=== PATIENT | male | born 1980 | race Two or more races ===

== ENCOUNTER 2024-10-14 15:03 | Emergency (ER) | payer BC, OTHER ==
[~2024-10-14] VITALS: Ht 172.7 cm; Wt 102.7 kg
[2024-10-14] MEDS: TETANUS-DIPTH-ACEL PERTUSSIS 0.5ML SYR Tdap IM ONE (15:29)
[2024-10-14] MEDS: LIDOCAINE 1% HCL (LOCAL ANESTH.) INJ 20ML MDV ID ONE (15:32)
[2024-10-14] MEDS ORDERED: CEPH250C PO (15:45)
[2024-10-14] MEDS ORDERED: ACET500T58 PO (15:45)
[2024-10-14] MEDS ORDERED: IBUP-1455 PO (15:45)
--- NOTE | 2024-10-14 15:46 | ED.PDOC ---
HPI Comments This patient is a otherwise healthy 44-year-old male who arrives the ED today for evaluation of a laceration sustained in the left palm or proximally 1/2 hour prior to arrival. Patient was preparing food at home when he jammed a serrated knife into the palm of his left hand. Bleeding with a was controlled at time of evaluation. Patient's tetanus is not up-to-date. Vital signs were stable. Chief Complaint: Laceration Time Seen by MD: 15:11 Reviewed Notes: Nurses Notes Allergies: Coded Allergies: NO KNOWN ALLERGIES (Unverified , 10/14/24) Information Source: Patient Mode of Arrival: Ambulatory Severity: Moderate Severity of Laceration: Controlled Bleeding Complexity: Simple Timing: Minutes Prehospital treatment: None Laceration Location: Hand Mechanism: Knife Last Tetanus: > 5 Years Laceration Length (cm): 2 Skin Type: Linear Depth of Injury: Skin, Mucosa, SQ Tendon Injury: 0% Tender: Moderate Discharge: Bloody Past Medical History PAST MEDICAL HISTORY: Denies Surgical History: Denies all surgeries Family History Family History: Reviewed,noncontributory to illness, No family hx of Cancer, No family hx of DM, No family hx of Heart karin, No family hx of HTN, No family hx ofKidney karin, No family hx of Liver karin, No family hx of Lung karin, No family hx of Stroke Social History Smoker: Non-Smoker Alcohol: Denies ETOH Use Drugs: Denies Drug Use Lives In: Home Constitutional: denies: chills, diaphoresis, fatigue, fever, malaise, sweats, weakness, others EENTM: denies: blurred vision, double vision, ear bleeding, ear discharge, ear drainage, ear pain, ear ringing, eye pain, eye redness, hearing loss, mouth pain, mouth swelling, nasal discharge, nose bleeding, nose congestion, nose pain, photophobia, tearing, throat pain, throat swelling, voice changes, others Respiratory: denies: cough, hemoptysis, orthopnea, SOB at rest, shortness of breath, SOB with excertion, stridor, wheezing, others Cardiovascular: denies: chest pain, dizzy spells, diaphoresis, Dyspnea on exertion, edema, irregular heart beat, left arm pain, lightheadedness, palpitations, PND, syncope, others Gastrointestinal: denies: abdomen distended, abdominal pain, blood streaked bowels, constipated, diarrhea, dysphagia, difficulty swallowing, hematemesis, melena, nausea, poor appetite, poor fluid intake, rectal bleeding, rectal pain, vomiting, others Genitourinary: denies: burning, dysuria, flank pain, frequency, hematuria, incontinence, penile discharge, penile sore, pain, testicle pain, testicle swelling, urgency, others Neurological: denies: dizziness, fainting, headache, left sided numbness, left sided weakness, numbness, paresthesia, pre-existing deficit, right sided numbness, right sided weakness, seizure, speech problems, tingling, tremors, weakness, others Musculoskeletal: denies: back pain, gout, joint pain, joint swelling, muscle pain, muscle stiffness, neck pain, others Integumetry: reports: laceration (2 cm laceration sustained to the left palm); denies: bruises, change in color, change in hair/nails, dryness, lesions, lumps, rash, wounds, others Allergic/Immunocompromised: denies: Difficulty Healing, Frequent Infections, Hives, Itching, others Hematologic/Lymphatic: denies: anemia, blood clots, easy bleeding, easy bruising, swollen glands, others Endocrine: denies: excessive hunger, excessive sweating, excessive thirst, excessive urination, flushing, intolerance to cold, intolerance to heat, unexplained weight gain, unexplained weight loss, others Psychiatric: denies: anxiety, bipolar disorder, depression, hopeless, panic disorder, schizophrenia, sleepless, suicidal, others Physical Exam General Appearance: Moderate Distress ([id number] distress due to pain related to his palm laceration), Normal HEENT: Normal ENT Inspection, Pharynx Normal, TMs Normal Neck: Full Range of Motion, Non-Tender, Normal, Normal Inspection Respiratory: Chest Non-Tender, Lungs Clear, No Accessory Muscle Use, No Respiratory Distress, Normal Breath Sounds Cardiovascular: No Edema, No JVD, No Murmur, No Gallop, Normal Peripheral Pulses, Regular Rate/Rhythm Breast Exam: Deferred Gastrointestinal: No Organomegaly, Non Tender, No Pulsatile Mass, Normal Bowel Sounds, Soft Genitalia: Deferred Pelvic: Deferred Rectal: Deferred Extremities: No calf tenderness, Normal capillary refill, Normal inspection, Normal range of motion, Non-tender, No pedal edema Neurologic: Alert, No Motor Deficits, Normal Affect, Normal Mood, No Sensory Deficits Cerebellar Function: Normal Reflexes: Normal Skin: Other (2 cm diagonal laceration noted to the central palm of the left hand. Bleeding is controlled. All flexor activity is uncompromised.) Lymphatic: No Adenopathy Was a procedure done? Was a procedure done?: Yes Sedation Sedation?: No Other Procedure Notes 4 cc of 1% lidocaine was utilized for local anesthesia in the left palm. Sterile field was placed. Copious irrigation performed. Four 4-0 Ethilon sutures were utilized in a simple interrupted fashion to close the 2 cm horizontal wound to the palm of the left hand. Minimal blood loss. Patient tolerated procedure well. Clean dressing applied. Differential diagnosis Generic Laceration: Laceration X-Ray, Labs, Meds, VS Vital Signs Date Time Temp Pulse Resp B/P (MAP) Pulse Ox O2 Delivery O2 Flow Rate FiO2 10/14/24 15:10 98.2 64 18 135/86 (102) 97 98.2 Current Medications Medications (Trade) Dose Ordered Sig/Mikel Route Start Time Stop Time Status Last Admin Diphtheria/ Tetanus/Acell Pertussis (Boostrix T-Dap) 0.5 ml ONCE ONCE IM 10/14/24 15:30 10/14/24 15:31 DC 10/14/24 15:29 Lidocaine HCl (Xylocaine 1%) 10 ml ONCE ONCE ID 10/14/24 15:30 10/14/24 15:31 DC 10/14/24 15:32 X-Ray, Labs, Meds, VS Comment Patient tolerated procedure well. Advised patient utilize antibiotics as directed until completion as well as pain medication as needed. Patient should return to ED or primary care provider in 10 days for re-evaluation and probable suture removal. Time of 1ST Reevaluation: 15:44 Reevaluation 1ST: Improved Consultation: PCP Patient Education/Counseling: Diagnosis, Treatment Family Education/Counseling: Diagnosis, Treatment Departure 1 Departure Time of Disposition: 15:44 Impression: Primary Impression: Hand laceration Disposition: 01 HOME / SELF CARE / HOMELESS Condition: Stable Additional Instructions: Advised patient utilize antibiotics as directed until completion as well as pain medication as needed. Patient should keep the wound clean and dressed daily. Patient should return to ED or primary care provider in 10 days for re- evaluation and probable suture removal. e-Prescriptions Ibuprofen Micronized (Ibuprofen) 800 Mg Tab 800 MG PO Q8HP PRN, #20 TAB Prov: JORGE TABARES PAC 10/14/24 Acetaminophen (Acetaminophen) 500 Mg Tab 500 MG PO Q4HP PRN, #30 TAB Prov: JORGE TABARES PAC 10/14/24 Cephalexin (KEFLEX CAPSULE) 250 Mg Cp 1 CAP PO QID for 7 Days, #28 CAP Prov: JORGE TABARES PAC 10/14/24 Discharged With: Self, Friend Critical Care Note Critical Care Time?: No Stability Stability form required: No Heart Score Heart Score: Heart Score Response (Comments) Value History N/A 0 EKG N/A 0 Age N/A 0 Risk Factors N/A 0 Troponin N/A 0 Total 0 JORGE TABARES PAC Oct 14, 2024 15:46
[2024-10-14 16:15] VITALS: BP 131/86; PULSE 60; RESP 18; TEMP 98.2; O2SAT 96
== END 2024-10-14 16:17 | disposition home or self-care (01) ==
LOC: ER 15:03
DX: S61.412A Laceration without foreign body of left hand, initial encounter (principal); W26.0XXA Contact with knife, initial encounter; Y93.89 Activity, other specified; Y92.009 Unspecified place in unspecified non-institutional (private) residence as the place of occurrence of the external cause; Y99.8 Other external cause status
CPT/HCPCS: 12001; 90471; 90715; 99283; J2003